=== PATIENT | female | born 1960 | race African-American/Black ===

== ENCOUNTER 2021-11-06 17:11 | Inpatient (IN) | payer MEDICAID ==
[~2021-11-06] VITALS: Ht 177.8 cm; Wt 65.7 kg
[2021-11-06] MEDS ORDERED: MIRALAX17 GM PO (20:28)
[2021-11-06] MEDS ORDERED: PROTONIX TR40 M1 PO (20:32)
[2021-11-06] MEDS ORDERED: NOVOLOG 100U100 U/ML SQ (20:32)
[2021-11-06] MEDS ORDERED: PHENERGAN REC (20:34)
[2021-11-06] MEDS ORDERED: SYNTHROID RP0.1 MG PO (20:39)
[2021-11-06] MEDS ORDERED: REGLAN10 M2 PO (20:40)
[2021-11-06] MEDS ORDERED: TYLENOL 325MG325 MG PO (20:41)
[2021-11-06] MEDS ORDERED: GRALISE300 MG PO (20:42)
[2021-11-06] MEDS ORDERED: COREG12.5 M1 PO (20:42)
[2021-11-06] MEDS ORDERED: ZOLOFT 100MG100 MG PO (20:44)
[2021-11-06] MEDS ORDERED: FOLIC ACID1 MG PO (20:45)
[2021-11-07] VITALS (17 sets, daily range): BP systolic 97–226; BP diastolic 60–124
[2021-11-07 06:48] LABS: BASO # 0.04 K/mm3 (0.02-0.10); EOS # 0.26 K/mm3 (0.04-0.40); EOS % 5.4 % (1.0-5.0); HEMATOCRIT 21.3 % (37.0-47.0); LYMPH# 2.08 K/mm3 (1.50-4.00); MEAN CELL VOLUME 89 fl (78-100); MEAN CORPUSCULAR HEMOGLOBIN 27 pg (27-31); MEAN CORPUSCULAR HGB CONC 31 g/dL (33-37); MONO # 0.62 K/mm3 (0.20-0.80); NEU # 1.84 K/mm3 (1.40-6.50); PLATELET COUNT 233 K/mm3 (130-400); RED CELL DISTRIBUTION WIDTH 14.2 % (11.5-14.5); WHITE BLOOD COUNT 4.9 K/mm3 (4.8-10.8)
[2021-11-07 06:50] LABS: ALBUMIN 2.6 g/dL (3.4-4.8); POTASSIUM 4.2 mmol/L (3.5-5.1); SODIUM 139 mmol/L (136-145)
[2021-11-07 06:52] LABS: CALCIUM 8.2 mg/dL (8.3-10.5)
[2021-11-07 06:53] LABS: GLUCOSE 127 mg/dL (65-105); TOTAL PROTEIN 6.1 g/dL (6.2-8.1)
[2021-11-07 06:54] LABS: CARBON DIOXIDE 21 mmol/L (23-31)
[2021-11-07 06:55] LABS: TOTAL BILIRUBIN 0.2 mg/dL (0.2-1.2)
[2021-11-07 06:58] LABS: AST-SGOT 12 U/L (5-34)
[2021-11-07 06:59] LABS: ALT/SGPT 11 U/L (0-55)
[2021-11-07 07:15] LABS: TROPONIN-I < 0.030 ng/mL (<0.030)
[2021-11-07 07:24] LABS: HEMOGLOBIN 6.5 g/dL (12.5-16.0)
[2021-11-08 02:33] VITALS: BP 173/87
[2021-11-08 06:11] VITALS: BP 185/94
[2021-11-08 07:40] LABS: ALBUMIN 2.9 g/dL (3.4-4.8); POTASSIUM 4.9 mmol/L (3.5-5.1)
[2021-11-08 07:41] LABS: CALCIUM 8.7 mg/dL (8.3-10.5)
[2021-11-08 07:43] LABS: TOTAL PROTEIN 6.8 g/dL (6.2-8.1)
[2021-11-08 07:44] LABS: TOTAL BILIRUBIN 0.3 mg/dL (0.2-1.2)
[2021-11-08 07:49] LABS: MAGNESIUM 1.79 mg/dL (1.60-2.60)
[2021-11-08 07:53] LABS: BASO # 0.03 K/mm3 (0.02-0.10); EOS # 0.33 K/mm3 (0.04-0.40); EOS % 4.2 % (1.0-5.0); HEMATOCRIT 31.3 % (37.0-47.0); HEMOGLOBIN 10.2 g/dL (12.5-16.0); LYMPH# 1.99 K/mm3 (1.50-4.00); MEAN CELL VOLUME 87 fl (78-100); MEAN CORPUSCULAR HEMOGLOBIN 28 pg (27-31); MEAN CORPUSCULAR HGB CONC 33 g/dL (33-37); MEAN PLATELET VOLUME 10.2 fl (7.4-10.4); NEU # 4.78 K/mm3 (1.40-6.50); PLATELET COUNT 252 K/mm3 (130-400); RED BLOOD COUNT 3.59 M/mm3 (4.10-5.30); RED CELL DISTRIBUTION WIDTH 14.3 % (11.5-14.5); WHITE BLOOD COUNT 7.9 K/mm3 (4.8-10.8)
[2021-11-08 18:06] VITALS: BP 113/72
[2021-11-09 06:11] VITALS: BP 189/86
[2021-11-09 17:37] VITALS: BP 143/85
[2021-11-10 06:14] VITALS: BP 189/100
[2021-11-10 11:20] VITALS: BP 143/77
[2021-11-10 17:18] VITALS: BP 146/84
[2021-11-11 05:44] VITALS: BP 133/76
[2021-11-11 17:27] VITALS: BP 116/69
[2021-11-12 06:22] VITALS: BP 203/106
[2021-11-12 07:22] VITALS: BP 154/82
[2021-11-12 17:14] VITALS: BP 162/93
[2021-11-12 17:35] VITALS: BP 220/110
[2021-11-12 18:20] VITALS: BP 152/88
[2021-11-12 22:57] VITALS: BP 176/98
[2021-11-13 06:06] VITALS: BP 154/79
[2021-11-13 07:11] LABS: BASO # 0.03 K/mm3 (0.02-0.10); EOS # 0.47 K/mm3 (0.04-0.40); EOS % 7.2 % (1.0-5.0); HEMATOCRIT 30.1 % (37.0-47.0); HEMOGLOBIN 9.5 g/dL (12.5-16.0); LYMPH# 1.83 K/mm3 (1.50-4.00); MEAN CELL VOLUME 91 fl (78-100); MEAN CORPUSCULAR HEMOGLOBIN 29 pg (27-31); MEAN CORPUSCULAR HGB CONC 32 g/dL (33-37); NEU # 3.61 K/mm3 (1.40-6.50); PLATELET COUNT 216 K/mm3 (130-400); RED CELL DISTRIBUTION WIDTH 14.3 % (11.5-14.5); WHITE BLOOD COUNT 6.5 K/mm3 (4.8-10.8)
[2021-11-13 07:17] LABS: POTASSIUM 4.6 mmol/L (3.5-5.1)
[2021-11-13 07:18] LABS: CALCIUM 8.8 mg/dL (8.3-10.5)
[2021-11-13 17:46] VITALS: BP 176/95
[2021-11-14 00:12] LABS: FOLATE (FOLIC ACID) >20.0 ng/mL (2.0-20.0)
[2021-11-14 06:00] VITALS: BP 119/59
[2021-11-14 17:02] VITALS: BP 158/78
[2021-11-15 06:24] VITALS: BP 127/72
[2021-11-15 17:20] VITALS: BP 178/94
[2021-11-16 06:34] VITALS: BP 158/69
[2021-11-16 17:05] VITALS: BP 161/86
[2021-11-17 06:21] VITALS: BP 191/98
[2021-11-17 17:12] VITALS: BP 160/88
[2021-11-18 05:56] VITALS: BP 145/76
[2021-11-18 17:07] VITALS: BP 133/78
[2021-11-19 06:12] VITALS: BP 169/82
[2021-11-19 17:13] VITALS: BP 157/86
[2021-11-20 06:00] VITALS: BP 178/83
[2021-11-20 10:53] VITALS: BP 190/94
[2021-11-20 15:48] LABS: BASO # 0.02 K/mm3 (0.02-0.10); EOS # 0.22 K/mm3 (0.04-0.40); EOS % 3.4 % (1.0-5.0); HEMATOCRIT 29.6 % (37.0-47.0); HEMOGLOBIN 9.2 g/dL (12.5-16.0); LYMPH# 1.27 K/mm3 (1.50-4.00); MEAN CELL VOLUME 91 fl (78-100); MEAN CORPUSCULAR HEMOGLOBIN 28 pg (27-31); MEAN CORPUSCULAR HGB CONC 31 g/dL (33-37); MEAN PLATELET VOLUME 9.8 fl (7.4-10.4); NEU # 4.34 K/mm3 (1.40-6.50); PLATELET COUNT 243 K/mm3 (130-400); RED BLOOD COUNT 3.24 M/mm3 (4.10-5.30); RED CELL DISTRIBUTION WIDTH 14.3 % (11.5-14.5); WHITE BLOOD COUNT 6.5 K/mm3 (4.8-10.8)
[2021-11-20 15:56] LABS: ALBUMIN 3.2 g/dL (3.4-4.8); POTASSIUM 4.4 mmol/L (3.5-5.1)
[2021-11-20 15:58] LABS: CALCIUM 9.4 mg/dL (8.3-10.5)
[2021-11-20 15:59] LABS: TOTAL PROTEIN 7.5 g/dL (6.2-8.1)
[2021-11-20 16:01] LABS: TOTAL BILIRUBIN 0.2 mg/dL (0.2-1.2)
[2021-11-20 17:17] VITALS: BP 151/76
[2021-11-20 22:23] VITALS: BP 189/95
[2021-11-21 02:49] VITALS: BP 198/107
[2021-11-21 03:45] VITALS: BP 133/76
[2021-11-21 05:55] VITALS: BP 159/93
[2021-11-21 17:02] VITALS: BP 138/76
[2021-11-22 05:43] VITALS: BP 115/62
[2021-11-22 17:05] VITALS: BP 156/80
[2021-11-23] VITALS (13 sets, daily range): BP systolic 90–156; BP diastolic 51–94
[2021-11-23 18:43] LABS: BASO # 0.01 K/mm3 (0.02-0.10); EOS # 0.11 K/mm3 (0.04-0.40); HEMOGLOBIN 8.4 g/dL (12.5-16.0); MEAN CELL VOLUME 94 fl (78-100); MEAN CORPUSCULAR HEMOGLOBIN 29 pg (27-31); MEAN CORPUSCULAR HGB CONC 31 g/dL (33-37); MEAN PLATELET VOLUME 10.2 fl (7.4-10.4); MONO # 0.24 K/mm3 (0.20-0.80); NEU # 2.04 K/mm3 (1.40-6.50); PLATELET COUNT 216 K/mm3 (130-400); RED BLOOD COUNT 2.88 M/mm3 (4.10-5.30); RED CELL DISTRIBUTION WIDTH 14.7 % (11.5-14.5); WHITE BLOOD COUNT 3.6 K/mm3 (4.8-10.8)
[2021-11-23 18:49] LABS: SODIUM 139 mmol/L (136-145)
[2021-11-23 18:50] LABS: CALCIUM 8.3 mg/dL (8.3-10.5); GLUCOSE 200 mg/dL (65-105)
[2021-11-23 18:52] LABS: CARBON DIOXIDE 22 mmol/L (23-31)
[2021-11-23 19:04] LABS: TROPONIN-I < 0.030 ng/mL (<0.030)
[2021-11-24] VITALS: BP 98/50
[2021-11-24 00:03] VITALS: BP 98/55
[2021-11-24 02:00] VITALS: BP 95/45
[2021-11-24 04:41] VITALS: BP 117/64
[2021-11-24 09:36] VITALS: BP 102/62
== END 2021-11-24 10:12 | disposition short-term general hospital (02) | DRG 948 ==
LOC: MED/SURG 17:11
PROVIDERS: Family Medicine; Nurse Practitioner; Physician Assistant; ADMIT Family Medicine
DX: R53.81 Other malaise (principal); N17.9 Acute kidney failure, unspecified; E44.1 Mild protein-calorie malnutrition; E11.43 Type 2 diabetes mellitus with diabetic autonomic (poly)neuropathy; K31.84 Gastroparesis; E11.42 Type 2 diabetes mellitus with diabetic polyneuropathy; I10 Essential (primary) hypertension; E03.9 Hypothyroidism, unspecified; I25.10 Atherosclerotic heart disease of native coronary artery without angina pectoris; F32.A Depression, unspecified; K21.9 Gastro-esophageal reflux disease without esophagitis; D64.9 Anemia, unspecified; R29.810 Facial weakness; Z79.4 Long term (current) use of insulin; Z89.512 Acquired absence of left leg below knee; Z89.431 Acquired absence of right foot; Z90.49 Acquired absence of other specified parts of digestive tract; Z88.5 Allergy status to narcotic agent; Z88.2 Allergy status to sulfonamides
CPT/HCPCS: J0360; J1170; J1650; J1815; J7030; Q9967